=== PATIENT | female | born 1970 | race Two or more races ===

== ENCOUNTER 2022-11-05 20:35 | Emergency (ER) | payer MEDICAID ==
[~2022-11-05] VITALS: Ht 162.6 cm; Wt 63.6 kg
[2022-11-05 21:30] VITALS: BP 128/89
== END 2022-11-06 05:28 | disposition left against medical advice (07) ==
LOC: ER 20:35
DX: M79.672 Pain in left foot (principal); M25.561 Pain in right knee; Z53.21 Procedure and treatment not carried out due to patient leaving prior to being seen by health care provider; W01.0XXA Fall on same level from slipping, tripping and stumbling without subsequent striking against object, initial encounter; Y93.89 Activity, other specified; Y92.89 Other specified places as the place of occurrence of the external cause; Y99.8 Other external cause status